=== PATIENT | female | born 2000 ===

== ENCOUNTER 2024-02-19 14:40 | Emergency (ER) | payer OTHER ==
[2024-02-19 15:38] VITALS: BP 118/83; PULSE 87; RESP 19; TEMP 98.4; BMI 20.2
== END 2024-02-19 15:41 | disposition home or self-care (01) ==
LOC: JERFT 14:40
DX: R05.9 Cough, unspecified (principal); J40 Bronchitis, not specified as acute or chronic
CPT/HCPCS: 99283-25